=== PATIENT | male | born 1935 | race Caucasian/White ===

== ENCOUNTER → 2018-01-06 | Outpatient (CLI) | payer OTHER | END | disposition home or self-care (01) | LOC: OIH 14:37 | PROVIDERS: ATTEND Internal Medicine | DX: M43.17 Spondylolisthesis, lumbosacral region (principal); M48.07 Spinal stenosis, lumbosacral region; M47.26 Other spondylosis with radiculopathy, lumbar region; D59.1 Other autoimmune hemolytic anemias | CPT/HCPCS: 72100; 72170 ==

== ENCOUNTER → 2019-12-05 | Outpatient (CLI) | payer OTHER | END | disposition home or self-care (01) | LOC: OIH 12:43 | PROVIDERS: ATTEND Internal Medicine | DX: I10 Essential (primary) hypertension (principal); M41.84 Other forms of scoliosis, thoracic region; M47.814 Spondylosis without myelopathy or radiculopathy, thoracic region; I70.0 Atherosclerosis of aorta | CPT/HCPCS: 71046 ==

== ENCOUNTER → 2020-08-05 | Outpatient (CLI) | payer OTHER | END | disposition home or self-care (01) | LOC: RAH 15:41 | PROVIDERS: ATTEND Internal Medicine | DX: I70.0 Atherosclerosis of aorta (principal); R07.89 Other chest pain; R05 Cough | CPT/HCPCS: 71046 ==

== ENCOUNTER → 2021-01-16 | Outpatient (CLI) | payer OTHER | END | disposition home or self-care (01) | LOC: OIH 14:41 | PROVIDERS: ATTEND Internal Medicine | DX: Q25.46 Tortuous aortic arch (principal); R06.02 Shortness of breath | CPT/HCPCS: 71046 ==

== ENCOUNTER → 2021-12-22 | Outpatient (CLI) | payer OTHER | END | disposition home or self-care (01) | LOC: RAH 08:59 | PROVIDERS: ATTEND Family Medicine | DX: M75.102 Unspecified rotator cuff tear or rupture of left shoulder, not specified as traumatic (principal); M25.412 Effusion, left shoulder; M62.512 Muscle wasting and atrophy, not elsewhere classified, left shoulder; Z98.890 Other specified postprocedural states | CPT/HCPCS: 73221 ==

== ENCOUNTER → 2022-11-24 | Outpatient (CLI) | payer OTHER ==
[2022-11-24 10:17] LABS: BASOPHILS % (AUTO) 1.6 % (0.0-5.0); EOSINOPHILS % (AUTO) 4.6 % (0.0-8.0); HEMATOCRIT 27.7 % (42-54); LYMPHOCYTES % (AUTO) 56.5 % (21.0-51.0); MEAN CORPUSCULAR HEMOGLOBIN 32.6 pg (27.0-33.0); MEAN CORPUSCULAR HGB CONC 33.2 g/dL (32.0-36.0); MEAN CORPUSCULAR VOLUME 98.2 fL (79-99); MONOCYTES % (AUTO) 11.8 % (3.0-13.0); NEUTROPHILS % (AUTO) 25.1 % (40.0-77.0); PLATELET COUNT (AUTO) 128 K/uL (130-400); RED BLOOD CELL COUNT(AUTO) 2.82 MIL/uL (4.50-6.20); RED CELL DISTRIBUTION WIDTH 17.2 % (11.0-15.5)
== END | disposition home or self-care (01) ==
LOC: LAB 09:23
PROVIDERS: ATTEND Internal Medicine
DX: D59.9 Acquired hemolytic anemia, unspecified (principal)
CPT/HCPCS: 36415; 85025

== ENCOUNTER → 2023-02-09 | Outpatient (CLI) | payer OTHER ==
[2023-02-09 12:22] LABS: BASOPHILS % (AUTO) 1.2 % (0.0-5.0); EOSINOPHILS % (AUTO) 0.7 % (0.0-8.0); HEMATOCRIT 27.7 % (42-54); LYMPHOCYTES % (AUTO) 66.8 % (21.0-51.0); MEAN CORPUSCULAR HEMOGLOBIN 32.5 pg (27.0-33.0); MEAN CORPUSCULAR HGB CONC 33.9 g/dL (32.0-36.0); MEAN CORPUSCULAR VOLUME 95.8 fL (79-99); MONOCYTES % (AUTO) 13.5 % (3.0-13.0); NEUTROPHILS % (AUTO) 17.1 % (40.0-77.0); PLATELET COUNT (AUTO) 150 K/uL (130-400); RED BLOOD CELL COUNT(AUTO) 2.89 MIL/uL (4.50-6.20); RED CELL DISTRIBUTION WIDTH 18.5 % (11.0-15.5); WHITE BLOOD COUNT (AUTO) 4.2 K/uL (4.8-10.8)
[2023-02-09 12:39] LABS: ALBUMIN 3.1 g/dL (3.5-5.0); CREATININE 0.7 mg/dL (0.5-1.5); POTASSIUM 3.9 mmol/L (3.5-5.1); TOTAL PROTEIN, SERUM 8.1 g/dL (6.0-8.3)
== END | disposition home or self-care (01) ==
LOC: LAB 11:35
PROVIDERS: ATTEND Internal Medicine
DX: K44.9 Diaphragmatic hernia without obstruction or gangrene (principal); D59.12 Cold autoimmune hemolytic anemia; D59.9 Acquired hemolytic anemia, unspecified; I10 Essential (primary) hypertension; M21.961 Unspecified acquired deformity of right lower leg; Z01.818 Encounter for other preprocedural examination
CPT/HCPCS: 36415; 71046; 80053; 85025

== ENCOUNTER → 2023-03-23 | Outpatient (CLI) | payer OTHER ==
[2023-03-23 15:38] LABS: BASOPHILS % (AUTO) 1.1 % (0.0-5.0); EOSINOPHILS % (AUTO) 1.9 % (0.0-8.0); HEMATOCRIT 26.9 % (42-54); LYMPHOCYTES % (AUTO) 42.6 % (21.0-51.0); MEAN CORPUSCULAR HEMOGLOBIN 32.4 pg (27.0-33.0); MEAN CORPUSCULAR HGB CONC 34.2 g/dL (32.0-36.0); MEAN CORPUSCULAR VOLUME 94.7 fL (79-99); MONOCYTES % (AUTO) 5.8 % (3.0-13.0); NEUTROPHILS % (AUTO) 48.1 % (40.0-77.0); PLATELET COUNT (AUTO) 178 K/uL (130-400); RED BLOOD CELL COUNT(AUTO) 2.84 MIL/uL (4.50-6.20); WHITE BLOOD COUNT (AUTO) 3.8 K/uL (4.8-10.8)
== END | disposition home or self-care (01) ==
LOC: LAB 15:02
PROVIDERS: ATTEND Internal Medicine
DX: I10 Essential (primary) hypertension (principal); D59.10 Autoimmune hemolytic anemia, unspecified; J45.998 Other asthma; K21.9 Gastro-esophageal reflux disease without esophagitis; K44.9 Diaphragmatic hernia without obstruction or gangrene; M41.80 Other forms of scoliosis, site unspecified
CPT/HCPCS: 36415; 85025

== ENCOUNTER → 2023-04-21 | Outpatient (CLI) | payer OTHER ==
[2023-04-21 08:44] LABS: BASOPHILS % (AUTO) 0.8 % (0.0-5.0); EOSINOPHILS % (AUTO) 2.1 % (0.0-8.0); HEMATOCRIT 29.2 % (42-54); LYMPHOCYTES % (AUTO) 61.2 % (21.0-51.0); MEAN CORPUSCULAR HEMOGLOBIN 32.6 pg (27.0-33.0); MEAN CORPUSCULAR HGB CONC 32.5 g/dL (32.0-36.0); MEAN CORPUSCULAR VOLUME 100.3 fL (79-99); MONOCYTES % (AUTO) 12.2 % (3.0-13.0); NEUTROPHILS % (AUTO) 23.2 % (40.0-77.0); PLATELET COUNT (AUTO) 127 K/uL (130-400); RED BLOOD CELL COUNT(AUTO) 2.91 MIL/uL (4.50-6.20); RED CELL DISTRIBUTION WIDTH 18.1 % (11.0-15.5); WHITE BLOOD COUNT (AUTO) 3.8 K/uL (4.8-10.8)
[2023-04-21 09:22] LABS: ALBUMIN 2.9 g/dL (3.5-5.0); CREATININE 0.7 mg/dL (0.5-1.5); POTASSIUM 3.9 mmol/L (3.5-5.1); TOTAL PROTEIN, SERUM 7.8 g/dL (6.0-8.3)
[2023-04-21 11:14] LABS: B-TYPE NATRIURETIC PEPTIDE 407 pg/mL (0-100)
== END | disposition home or self-care (01) ==
LOC: LAB 08:19
PROVIDERS: ATTEND Internal Medicine
DX: K44.9 Diaphragmatic hernia without obstruction or gangrene (principal); R53.83 Other fatigue; M41.80 Other forms of scoliosis, site unspecified; F41.8 Other specified anxiety disorders; I10 Essential (primary) hypertension; K21.9 Gastro-esophageal reflux disease without esophagitis; D59.10 Autoimmune hemolytic anemia, unspecified
CPT/HCPCS: 36415; 80053; 82607; 82728; 83880; 85025; 85045

== ENCOUNTER → 2024-05-02 | Outpatient (CLI) | payer OTHER ==
[2024-05-02 12:09] LABS: APPEARANCE,URINE CLEAR (CLEAR); BILIRUBIN,URINE NEGATIVE (NEGATIVE); COLOR,URINE LIGHT-YELLOW (YELLOW); GLUCOSE, URINE (UA) NEGATIVE (NEGATIVE); KETONES,URINE NEGATIVE (NEGATIVE); LEUKOCYTE ESTERASE ,URINE NEGATIVE Leu/uL (NEGATIVE); NITRATE,URINE NEGATIVE (NEGATIVE); OCCULT BLOOD,URINE NEGATIVE (NEGATIVE); PH,URINE 6.5 (5.0-8.0); PROTEIN,URINE NEGATIVE (NEGATIVE); UROBILINOGEN,URINE 0.2 mg/dL (0.2-1.0)
[2024-05-02 12:10] LABS: ADD UA MICROSCOPIC NO
[2024-05-02 12:30] LABS: BASOPHILS # (AUTO) 0.07 K/uL (0.00-0.20); BASOPHILS % (AUTO) 1.8 % (0.0-5.0); EOSINOPHILS # (AUTO) 0.33 K/uL (0.00-0.70); EOSINOPHILS % (AUTO) 8.3 % (0.0-8.0); HEMATOCRIT 32.1 % (42-54); IMMATURE GRANULOCYTE ABSOLUTE 0.01 K/uL (0-1); LYMPHOCYTES % (AUTO) 50.5 % (21.0-51.0); MEAN CORPUSCULAR HEMOGLOBIN 33.5 pg (27.0-33.0); MEAN CORPUSCULAR VOLUME 98.8 fL (79-99); MONOCYTES # (AUTO) 0.6 K/uL (0.1-1.0); MONOCYTES % (AUTO) 14.3 % (3.0-13.0); NEUTROPHILS % (AUTO) 24.8 % (40.0-77.0); PLATELET COUNT (AUTO) 133 K/uL (130-400); RED BLOOD CELL COUNT(AUTO) 3.25 MIL/uL (4.50-6.20)
[2024-05-02 12:51] LABS: HEMOGLOBIN A1C 4.6 % (4.0-6.0)
[2024-05-02 13:15] LABS: ALBUMIN 3.3 g/dL (3.5-5.0); BILIRUBIN,DIRECT 0.3 mg/dL (0.0-0.3); BILIRUBIN,TOTAL 1.4 mg/dL (0.2-1.0); CREATININE 0.7 mg/dL (0.5-1.3); POTASSIUM 4.2 mmol/L (3.5-5.1); THYROID STIMULATING HORMONE 4.85 uIU/mL (0.36-3.74); TOTAL PROTEIN, SERUM 8.1 g/dL (6.0-8.3)
== END | disposition home or self-care (01) ==
LOC: LAB 11:02
PROVIDERS: ATTEND Internal Medicine
DX: Z13.1 Encounter for screening for diabetes mellitus (principal); Z12.5 Encounter for screening for malignant neoplasm of prostate; E03.9 Hypothyroidism, unspecified; I10 Essential (primary) hypertension; E78.5 Hyperlipidemia, unspecified; Z79.899 Other long term (current) drug therapy
CPT/HCPCS: 36415; 80053; 80061; 80076; 81003; 82043; 82570; 83036; 84153; 84443; 85025

== ENCOUNTER → 2024-05-31 | Outpatient (CLI) | payer MEDICARE, OTHER | END | disposition home or self-care (01) | LOC: RAH 14:04 | PROVIDERS: ATTEND Internal Medicine | DX: K44.9 Diaphragmatic hernia without obstruction or gangrene (principal); M41.85 Other forms of scoliosis, thoracolumbar region; K40.90 Unilateral inguinal hernia, without obstruction or gangrene, not specified as recurrent; Z90.49 Acquired absence of other specified parts of digestive tract | CPT/HCPCS: 74176 ==

== ENCOUNTER → 2024-11-20 | Outpatient (CLI) | payer MEDICARE ==
[2024-11-20 16:12] LABS: BASOPHILS # (AUTO) 0.03 K/uL (0.00-0.20); BASOPHILS % (AUTO) 1.1 % (0.0-5.0); EOSINOPHILS # (AUTO) 0.02 K/uL (0.00-0.70); EOSINOPHILS % (AUTO) 0.7 % (0.0-8.0); HEMATOCRIT 26.2 % (42-54); IMMATURE GRANULOCYTE ABSOLUTE 0.14 K/uL (0-1); LYMPHOCYTES # (AUTO) 0.7 K/uL (1.0-4.8); LYMPHOCYTES % (AUTO) 26.4 % (21.0-51.0); MEAN CORPUSCULAR HEMOGLOBIN 33.2 pg (27.0-33.0); MEAN CORPUSCULAR HGB CONC 34.7 g/dL (32.0-36.0); MEAN CORPUSCULAR VOLUME 95.6 fL (79-99); MONOCYTES # (AUTO) 0.3 K/uL (0.1-1.0); MONOCYTES % (AUTO) 10.1 % (3.0-13.0); NEUTROPHILS # (AUTO) 1.6 K/uL (1.8-7.7); NEUTROPHILS % (AUTO) 56.6 % (40.0-77.0); PLATELET COUNT (AUTO) 151 K/uL (130-400); RED BLOOD CELL COUNT(AUTO) 2.74 MIL/uL (4.50-6.20); RED CELL DISTRIBUTION WIDTH 17.4 % (11.0-15.5); WHITE BLOOD COUNT (AUTO) 2.8 K/uL (4.8-10.8)
[2024-11-20 17:00] LABS: ALBUMIN 3.2 g/dL (3.5-5.0); BILIRUBIN,TOTAL 2.1 mg/dL (0.2-1.0); CREATININE 0.7 mg/dL (0.5-1.3); POTASSIUM 5.1 mmol/L (3.5-5.1); THYROID STIMULATING HORMONE 3.14 uIU/mL (0.36-3.74); TOTAL PROTEIN, SERUM 7.5 g/dL (6.0-8.3); URIC ACID 5.8 mg/dL (2.6-7.2)
[2024-11-20 17:18] LABS: BAND NEUTROPHILS % (MANUAL) 5 % (0-2); LYMPHOCYTES % (MANUAL) 32 % (22-44); MAN.DIFF COMMENT-IMPRESSION MANUAL DIFFERENTIAL; MONOCYTES % (MANUAL) 8 % (2-9); PLATELET MORPHOLOGY COMMENT ADEQUATE; SEGMENTED NEUTROPHILS % 55 % (40-70); TOTAL CELLS COUNTED 100; WBC MORPHOLOGY CONSISTENT W/DIFF
== END | disposition home or self-care (01) ==
LOC: LAB 15:08
PROVIDERS: ATTEND Internal Medicine
DX: Z13.1 Encounter for screening for diabetes mellitus (principal); I10 Essential (primary) hypertension; F41.1 Generalized anxiety disorder; K59.04 Chronic idiopathic constipation; I34.0 Nonrheumatic mitral (valve) insufficiency; E78.5 Hyperlipidemia, unspecified; E03.9 Hypothyroidism, unspecified; Z85.46 Personal history of malignant neoplasm of prostate; Z86.2 Personal history of diseases of the blood and blood-forming organs and certain disorders involving the immune mechanism
CPT/HCPCS: 36415; 80053; 80061; 83036; 84153; 84154; 84443; 84550; 85025

== ENCOUNTER → 2025-01-09 | Outpatient (CLI) | payer MEDICARE ==
--- NOTE | 2025-01-09 11:27 | HMCIMG ---
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 COMPARISON: None TECHNIQUE: Single contrast upper GI series study was performed. FINDINGS: There is no obstruction to the antegrade passage of barium from mouth to jejunum. The study is limited due to patient's underlying condition. There are findings suspicious for Zenker's diverticulum in the cervical esophagus but cannot completely well visualized. Esophageal contractions are noted. Stomach is poorly distended. There is large hiatal hernia. There is gastroesophageal reflux seen to the level of mid thoracic esophagus. Duodenal bulb and duodenal sweep are grossly unremarkable. IMPRESSION: Limited study due to patient's underlying condition. Questionable Zenker's diverticulum. Large hiatal hernia. Gastroesophageal reflux to the level of mid thoracic esophagus. No obstruction.
== END | disposition home or self-care (01) ==
LOC: RAH 09:22
PROVIDERS: ATTEND Internal Medicine Gastroenterology
DX: K21.9 Gastro-esophageal reflux disease without esophagitis (principal); K44.9 Diaphragmatic hernia without obstruction or gangrene; K31.89 Other diseases of stomach and duodenum; K22.5 Diverticulum of esophagus, acquired; R12 Heartburn
CPT/HCPCS: 74240

== ENCOUNTER → 2025-02-08 | Outpatient (CLI) | payer MEDICARE ==
[2025-02-08 09:28] LABS: BASOPHILS # (AUTO) 0.03 K/uL (0.00-0.20); BASOPHILS % (AUTO) 1.1 % (0.0-5.0); HEMATOCRIT 23.3 % (42-54); IMMATURE GRANULOCYTE ABSOLUTE 0.02 K/uL (0-1); LYMPHOCYTES # (AUTO) 1.7 K/uL (1.0-4.8); LYMPHOCYTES % (AUTO) 59.3 % (21.0-51.0); MEAN CORPUSCULAR HGB CONC 35.2 g/dL (32.0-36.0); MEAN CORPUSCULAR VOLUME 102.2 fL (79-99); MONOCYTES # (AUTO) 0.5 K/uL (0.1-1.0); MONOCYTES % (AUTO) 18.6 % (3.0-13.0); NEUTROPHILS # (AUTO) 0.6 K/uL (1.8-7.7); NEUTROPHILS % (AUTO) 20.3 % (40.0-77.0); PLATELET COUNT (AUTO) 147 K/uL (130-400); RED BLOOD CELL COUNT(AUTO) 2.28 MIL/uL (4.50-6.20); RED CELL DISTRIBUTION WIDTH 18.4 % (11.0-15.5); WHITE BLOOD COUNT (AUTO) 2.9 K/uL (4.8-10.8)
[2025-02-08 10:07] LABS: ALANINE AMINOTRANSFERASE 16 U/L (12-78); ALBUMIN 3.1 g/dL (3.5-5.0); ASPARTATE AMINOTRANSFERASE 21 U/L (10-37); BILIRUBIN,TOTAL 1.7 mg/dL (0.2-1.0); CARBON DIOXIDE 30 mmol/L (21-32); CHLORIDE 100 mmol/L (101-111); CREATININE 0.7 mg/dL (0.5-1.3); FERRITIN 239 ng/mL (30-400); GLOMERULAR FILTR. RATE CALC 89 mL/min (>90); GLUCOSE,RANDOM 91 mg/dL (70-105); POTASSIUM 3.9 mmol/L (3.5-5.1); SODIUM SERUM 136 mmol/L (136-145); TOTAL PROTEIN, SERUM 7.2 g/dL (6.0-8.3); UREA NITROGEN, BLOOD 14 mg/dL (7-18)
[2025-02-08 10:43] LABS: BASOPHILS % (MANUAL) 1 % (0-2); LYMPHOCYTES % (MANUAL) 74 % (22-44); MONOCYTES % (MANUAL) 4 % (2-9); REACTIVE LYMPHOCYTES 3 % (0-0); SEGMENTED NEUTROPHILS % 18 % (40-70); TOTAL CELLS COUNTED 100
[2025-02-08 10:44] LABS: MAN.DIFF COMMENT-IMPRESSION MANUAL DIFFERENTIAL; PLATELET MORPHOLOGY COMMENT ADEQUATE
[2025-02-08 10:46] LABS: WBC MORPHOLOGY REACTIVE LYMPHS 1+
== END | disposition home or self-care (01) ==
LOC: LAB 09:04
PROVIDERS: ATTEND Internal Medicine
DX: I10 Essential (primary) hypertension (principal); E03.9 Hypothyroidism, unspecified; K44.9 Diaphragmatic hernia without obstruction or gangrene; R53.83 Other fatigue; R26.9 Unspecified abnormalities of gait and mobility; D59.12 Cold autoimmune hemolytic anemia; Z98.890 Other specified postprocedural states
CPT/HCPCS: 36415; 80053; 82607; 82728; 82746; 84443; 85025

== ENCOUNTER 2025-03-29 11:28 | Observation (INO) | payer MEDICARE ==
[2025-03-27 13:37] LABS: BASOPHILS # (AUTO) 0.02 K/uL (0.00-0.20); BASOPHILS % (AUTO) 0.9 % (0.0-5.0); HEMATOCRIT 21.3 % (42-54); IMMATURE GRANULOCYTE ABSOLUTE 0.02 K/uL (0-1); LYMPHOCYTES # (AUTO) 1.3 K/uL (1.0-4.8); LYMPHOCYTES % (AUTO) 57.9 % (21.0-51.0); MEAN CORPUSCULAR HGB CONC 33.3 g/dL (32.0-36.0); MEAN CORPUSCULAR VOLUME 101.9 fL (79-99); MONOCYTES # (AUTO) 0.3 K/uL (0.1-1.0); MONOCYTES % (AUTO) 14.9 % (3.0-13.0); NEUTROPHILS # (AUTO) 0.6 K/uL (1.8-7.7); NEUTROPHILS % (AUTO) 25.4 % (40.0-77.0); NUCLEATED RED BLOOD CELLS 0.9 % (0.0-0.19); PLATELET COUNT (AUTO) 121 K/uL (130-400); RED BLOOD CELL COUNT(AUTO) 2.09 MIL/uL (4.50-6.20); RED CELL DISTRIBUTION WIDTH 19.4 % (11.0-15.5); WHITE BLOOD COUNT (AUTO) 2.3 K/uL (4.8-10.8)
[2025-03-27 13:45] LABS: CREATININE 0.6 mg/dL (0.5-1.3); POTASSIUM 4.1 mmol/L (3.5-5.1)
[2025-03-27 13:51] LABS: INR 1.15 (0.85-1.15)
[2025-03-27 13:53] LABS: PARTIAL THROMBOPLASTIN TIME 26.3 SEC (26.3-35.5)
[2025-03-27 14:03] LABS: BAND NEUTROPHILS % (MANUAL) 1 % (0-2); LYMPHOCYTES % (MANUAL) 47 % (22-44); MONOCYTES % (MANUAL) 17 % (2-9); SEGMENTED NEUTROPHILS % 35 % (40-70); TOTAL CELLS COUNTED 100
[2025-03-27 14:04] LABS: MAN.DIFF COMMENT-IMPRESSION MANUAL DIFFERENTIAL; PLATELET MORPHOLOGY COMMENT ADEQUATE
[2025-03-27 14:40] VITALS: BP 157/73; PULSE 68; RESP 18; TEMP 98.1
--- NOTE | 2025-03-27 16:39 | NUR ---
report reported cbc to dr redmond. received instructions for pt to see dr augustine tomorrow for surgical clearance. pt was given appt for 03/28 at 9:[address] redmond pt on prednisone. ok for pt to continue prednisone.
--- NOTE | 2025-03-28 14:37 | NUR ---
F/U CALLED HENRIETTA WITH DR LAZCANO. SHE WAS INFORMED BY DR MCFADDEN OFFICE PT WAS CLEARED FOR SURGERY AND REPEAT CBC WAS DONE WITH RESULTS OF H&H .8 AND WBC 4.17. HENRIETTA WILL CALL BACK IF OK TO PROCEED
--- NOTE | 2025-03-28 16:22 | NUR ---
RECEIVED CALLBACK FROM HENRIETTA REGARDING LABS (CBC). PER DR. LAZCANO, OK TO PROCEED
[2025-03-29] VITALS (27 sets, daily range): BP systolic 132–160; BP diastolic 61–90; PULSE 74–97; RESP 15–20; TEMP 97–97.7; O2SAT 96–97
[~2025-03-29] VITALS: Ht 170.2 cm; Wt 74.2 kg
[~2025-03-29 11:28] MED LIST: CYAN1TAB17 PO; DIAZ5TAB4 PO; ESOM40CA66 PO; LEVO50CA5 PO; MONT-39 PO; MULT-298 PO; PRED10TA23 PO; VALS320T16 PO; vitamin b12 PO
[2025-03-29] MEDS: LACTATED RINGERS 1000ML 1,000 ML IV ONE (11:51)
[2025-03-29] MEDS: ceFAZolin SODIUM 2 GM VIAL ONE (11:51)
[2025-03-29] MEDS: acetaMINOPHEN 100 ML ONE (13:08)
[2025-03-29] MEDS: FAMOTIDINE 20MG VIAL IV ONE (13:09)
[2025-03-29] MEDS ORDERED: proPOFol 10 MG/ML 20ML VIAL IV ONE (13:26)
[2025-03-29] MEDS ORDERED: FENTanyl CITRate PF 50 MCG/1 ML 2ML VIAL ONE (13:27)
[2025-03-29] MEDS ORDERED: rocuRONium bROMide 10MG/1ML 5ML VL ONE ×2 (13:28→14:10)
[2025-03-29] MEDS ORDERED: LIDOCAINE PF 100MG/5ML (2%) SYRINGE 5ML ONE (13:28)
[2025-03-29] MEDS ORDERED: dexaMETHasone SOD PHOSPHATE 10MG/ML 1ML VIAL ONE (13:50)
[2025-03-29] MEDS ORDERED: ondanSETRON 4MG INJ ONE (13:50)
[2025-03-29] MEDS ORDERED: ketaMINE 50MG/ML SYRINGE 50 MG/ML DISP.SYRIN ONE (13:55)
[2025-03-29 13:57] LABS: ABG BASE EXCESS 4.1 mmol/L (-2.0-3.0); ABG HCO3 28.9 mmol/L (21.0-28.0); ABG OXYGEN SATURATION 99.5 % (94.0-98.0); ABG PCO2 45 mmHg (35-48); ABG PH 7.426 (7.350-7.450); CARBON MONOXIDE 2.6 % (0.5-1.5); DEVICE COMMENT A-LINE; HHb 0.5; PO2, ARTERIAL BG 405.1 mmHg (83.0-108.0); VENT MODE, BG OR VENT (ROOM AIR)
[2025-03-29] MEDS: BUPIvacaine/PF 0.25% 30ML VIAL IJ ONE (14:07)
[2025-03-29] MEDS ORDERED: GLYCOPYRROLATE 0.2 MG/ML 5 ML VIAL ONE (14:07)
[2025-03-29] MEDS ORDERED: NEOSTIGMINE METHYLSULFATE 1MG/ML IV ONE (14:08)
--- NOTE | 2025-03-29 16:29 | OP ---
Operative Note: DATE OF PROCEDURE: 03/29/25 SURGEON: AIDA LAZCANO MD PRINTED [employer]SEMBLY REPAIRER: [facility] [place] nursing and technicians ANESTHESIA: General and local ANESTHESIOLOGIST/FISHING TACKLE REPAIRER: [facility] [place] team PREOPERATIVE DIAGNOSIS: Large paraesophageal hiatal hernia POSTOPERATIVE DIAGNOSIS: As above. Incarcerated and volvulized stomach in the mediastinum. SYNOPSIS: Reduction of volvulized stomach, paraesophageal hiatal hernia repair with mesh reinforcement and posterior partial fundoplication undertaken without complication PROCEDURE: 1. Robotic assisted paraesophageal hiatal hernia repair with mesh reinforcement 2. Posterior partial fundoplication 3. Reduction of volvulized stomach 4. EGD 5. Extensive lysis of adhesions greater than 30 minutes. Robot had to be Re docked after adhesiolysis to place instruments in their appropriate locations for the remainder of the operation. ESTIMATED BLOOD LOSS: Minimal, less than 30 cc INDICATIONS: As above DESCRIPTION OF PROCEDURE: After standard precautions and preparations were undertaken a Veress needle and optical trocar were used to enter the abdominal cavity. All other instruments were placed under direct vision. The robotic system was docked in the standard fashion. We had to lyse adhesions related to the patient's previous umbilical hernia repair with mesh placement. Once those adhesions were lysed then all the instruments could be placed properly and the robot could be docked to allow for proper camera placement. We began by opening pars flaccida and identifying the right jenifer of the diaphragm. After significant time dissecting around the mediastinum we are able to enter into a nearly avascular plane and carried this dissection circumferentially to mobilize the incarcerated stomach and distal esophagus. The vast majority of the stomach up to the antrum was incarcerated and volvulized in the chest. Once we are done with our dissection of the GE junction was resting at the level of the hiatus and the stomach was able to be reduced back into the abdominal cavity in the correct orientation. The hernia repair was undertaken by reapproximating the right and left crura from the crossing fibers and the retroesophageal space upwards towards the posterior esophageal wall. The defect was extremely large greater than 10 cm in widest diameter. Due to the poor tissue quality in the size of the defect a mesh was used to reinforced the closure. The mesh was cut in a horseshoe shape and sutured in place to prevent mesh migration. A posterior partial fundoplication was undertaken by suturing the proximal fundus in a 270 degree posterior wrap orientation. At the end of the case and throughout the case the EGD scope was utilized to verify appropriate anatomic landmarks. At the end of the case the GE junction was determined to be 2-3 cm below the hiatus without any tension. The fundoplication was in place and appeared appropriate. All instrument counts were verified as correct prior to ending the case including needles and sponges. AIDA LAZCANO MD Mar 29, 2025 16:29
[2025-03-29] MEDS ORDERED: morPHINE 4 MG SYG IVP PRN (16:30)
[2025-03-29] MEDS ORDERED: monteLUKAST sodIUM 10 MG TAB PO PRN (16:30)
[2025-03-29] MEDS ORDERED: PROCHLORPERAZINE 10MG/2ML INJ IV PRN (16:30)
[2025-03-29] MEDS: HEParin 5,000 UNIT VIAL SQ SCH (16:30)
[2025-03-29] MEDS ORDERED: ondanSETRON 4MG INJ IVP PRN (16:30)
[2025-03-29] MEDS: D5LR-20 MEQ KCL 1000 ML 1,000 ML IV SCH (16:30)
[2025-03-29] MEDS ORDERED: morPHINE 2 MG SYG IVP PRN (16:30)
[2025-03-29] MEDS: FENTanyl CITRate PF 50 MCG/1 ML 2ML VIAL ONE (16:48)
--- NOTE | 2025-03-29 17:54 | NUR ---
REPORT RECEIVED FROM MICHAEL RN. PATIENT ARRIVED TO UNIT NO SIGNS OF DISTRESS NOTED, BUT PATIENT IS STILL DROWSY. ORDERED FLUIDS FROM PHARMACY SCDS PLACED ON PATIENT AND POST OP VITALS STARTED. WILL MONITOR PATIENT AND ORDER I.S. WHEN PATIENT IS MORE AWAKE AND ALERT
[2025-03-29] MEDS: diazePAM 5 MG TAB PO SCH (20:08)
[2025-03-29] MEDS: PANTOPrazole 40 MG TAB DR PO SCH (20:08)
[2025-03-29] MEDS: ketOROlac 30MG VIAL (30MG/ML) IV PRN (20:11)
[2025-03-30] VITALS: BP 133/70; PULSE 76; RESP 18; TEMP 97.2
[2025-03-30 04:00] VITALS: BP 130/70; PULSE 77; RESP 19; TEMP 97.3
[2025-03-30] MEDS: levoTHYROxine 50 MCG TABLET PO SCH (06:04)
[2025-03-30 08:00] VITALS: BP_SYST 156; PULSE 76; RESP 18; TEMP 98.2
[2025-03-30 09:38] VITALS: O2SAT 92
[2025-03-30] MEDS: VITAMIN B COMPLEX 1 CAPSULE PO SCH (09:38)
--- NOTE | 2025-03-30 12:06 | NUR ---
DCP:HOME Pt currently lives with Yara Hall, Pt states that he has a walker at home however does not uses it regularly. Pt does not have a provider or home health services. Pt is able to complete ADLs independently. PCP is Dr. Foley and uses [facility] for any RX needs. At [place] pt will go home and can assist with transportation. Addendum: 03/30/25 at 1208 by LISSY SWANSON SS Amended: Links added.
[2025-03-30 12:12] VITALS: BP 129/61; PULSE 84; RESP 18; TEMP 97.9
--- NOTE | 2025-03-30 12:12 | DS ---
Discharge Summary HOSPITAL COURSE SUMMARY: [] CUFF RUNNER(S): [] PROCEDURES: [] PROBLEM(S): [] DISCHARGE INSTRUCTIONS: [] Home Meds Reported Medications [vitamin b12] No Conflict Check, 1 TAB PO DAILY 03/27/25 Multivitamin (One-A-Day Essential) 1 Each Tablet, 1 EACH PO DAILY, TAB 03/27/25 Cyanocobalamin/FA/Pyridoxine (Folbic Tablet) 2 Mg-2.5 Mg-25 Mg Tablet, 1 EACH PO DAILY, TAB 03/27/25 Montelukast Sodium (Montelukast Sodium) 10 Mg Tablet, 10 MG PO DAILY PRN for congestion, TAB 03/27/25 Esomeprazole Magnesium (Esomeprazole Magnesium) 40 Mg Capsule.dr, 40 MG PO BID, CAP 03/27/25 Levothyroxine Sodium (Levothyroxine) 50 Mcg Capsule, 50 MCG PO AM, CAP 03/27/25 Valsartan (Valsartan) 320 Mg Tablet, 320 MG PO NOON, TAB 03/27/25 Diazepam (Diazepam) 5 Mg Tablet, 5 MG PO HS, TAB 03/27/25 Prednisone (Prednisone) 10 Mg Tab.ds.pk, 10 MG PO NOON 03/27/25 SANDI MENDEZ [facility] Mar 30, 2025 12:12
[2025-03-30] MEDS: LoSARTan 100 MG TABLET PO SCH (12:24)
[2025-03-30] MEDS: predniSONE 10 MG TABLET PO SCH (12:24)
[2025-03-30] MEDS ORDERED: PHENOL 177 ML BOTTLE PO PRN (12:30)
--- NOTE | 2025-03-30 14:41 | NUR ---
PATIENT DISCHARGED PERIPHERAL IV DISCONTINUED CATHETER INTACT DISCHARGE INSTRUCTIONS GIVEN PRESCRIPTIONS SENT TO PHARMACY PATIENT AWARE TO F/U WITH DR. LAZCANO ALL QUESTIONS ANSWERED.
--- NOTE | 2025-03-30 22:13 | PN ---
PROGRESS NOTE PROGRESS NOTE DATE OF PROGRESS NOTE: 03/30/25 SUBJECTIVE: No new complaints VITAL SIGNS Vital Signs Date Time Temp Pulse Resp B/P (MAP) Pulse Ox O2 Delivery O2 Flow Rate FiO2 03/30/25 12:12 97.9 84 18 129/61 95 Room Air 03/30/25 09:38 3 32 PHYSICAL EXAM: HEENT atraumatic normocephalic head Neck is supple Lungs are clear to auscultation percussion Heart was S1-S2 heard no murmur Extremities no pedal edema Skin exam unremarkable PLAN: Cryoglobulinemia clinically stable Anxiety control Hypertension stable Status post hiatal hernia repair discharge once cleared by RAE SAGE MD Mar 30, 2025 22:13
== END 2025-03-30 15:05 | disposition home or self-care (01) ==
LOC: DAH 11:28 → DAHIP 11:29 → INTOOBSV 11:29 → DAH 11:29 → 4CH 17:50
PROVIDERS: ADMIT Surgery; ATTEND Surgery
DX: K44.9 Diaphragmatic hernia without obstruction or gangrene (principal); K22.5 Diverticulum of esophagus, acquired; I10 Essential (primary) hypertension; E03.9 Hypothyroidism, unspecified; F41.9 Anxiety disorder, unspecified; Z79.899 Other long term (current) drug therapy; Z86.2 Personal history of diseases of the blood and blood-forming organs and certain disorders involving the immune mechanism
CPT/HCPCS: 80048; 85025; 85610; 85730; 86850; 86900; 86901; 36415; 43282; 96374; 82435; 82947; 84132; 84295; 82803; 85018; 86923; 82948; 83605; 96376; 96372; 97161; 97116; A4663; J7040; A4215 ×2; J7120; J3490 ×5; J3010 ×2; J1100; J0665; J2003; J2704; J2405; J1885 ×2; J2710; J3480 ×3; J0690; C1781; A4930; A4223 ×2; A4213; A4222; A4221; A4216; A4600; G0378 ×3; J1644; J7512; 43235

== ENCOUNTER 2025-05-19 11:45 | Emergency (ER) | payer MEDICARE ==
[~2025-05-19] VITALS: Ht 170.2 cm; Wt 72.6 kg
--- NOTE | 2025-05-19 12:24 | NUR ---
LAB RPORTED HEMOGLOBIN 5.6 AND HEMATOCRIT 12.9. STATED TO HOLD OFF ON THE CRITICAL LABS DUE TO "GLUTENATION." WILL RE PROCESS H&H
[2025-05-19 12:34] LABS: IMMATURE GRANULOCYTE ABSOLUTE 0.02 K/uL (0-1); NUCLEATED RED BLOOD CELLS 0.8 % (0.0-0.19); PLATELET COUNT (AUTO) 149 K/uL (130-400); RED BLOOD CELL COUNT(AUTO) 1.56 MIL/uL (4.50-6.20); RED CELL DISTRIBUTION WIDTH 21.6 % (11.0-15.5); WHITE BLOOD COUNT (AUTO) 2.5 K/uL (4.8-10.8)
[2025-05-19 12:37] LABS: CREATINE KINASE, TOTAL 26.0 U/L (21-232); CREATININE 0.6 mg/dL (0.5-1.3); GLOMERULAR FILTR. RATE CALC 93.0 mL/min (>90); GLUCOSE,RANDOM 94.0 mg/dL (70-105); SODIUM SERUM 134.0 mmol/L (136-145); UREA NITROGEN, BLOOD 12.0 mg/dL (7-18)
--- NOTE | 2025-05-19 12:40 | NUR ---
PATIENT STATES SEES DR MAURER FOR BLOOD DISORDER. STATES CBC BLOOD TUBE MUST BE PLACED IN LAB PROCESSING MACHINE IMMEDIATELY OR IT WILL CLOT AND SHOW LOW RESULTS.
--- NOTE | 2025-05-19 13:13 | HMCIMG ---
EXAM: US for Deep Venous Thrombosis, left Lower Extremity. CLINICAL HISTORY: Leg Pain and Swelling TECHNIQUE: Real-time ultrasound scan of the veins of the left lower extremity with color Doppler flow, spectral waveform analysis and compression. COMPARISON: None provided. FINDINGS: DEEP VEINS: The common femoral, superficial femoral, and popliteal veins are echolucent and compressible. There is normal color Doppler flow throughout. The visualized calf veins appear patent. SOFT TISSUES: No popliteal fossa cyst or other abnormalities. IMPRESSION: 1. No deep venous thrombosis in the left lower extremity. /[place]
--- NOTE | 2025-05-19 13:14 | NUR ---
DECLINES BLOOD PRODUCTS. REFUSAL FOR BLOOD PRODUCTS SIGNED BY SPOUSE AT BEDSIDE. DECLINES ANY FURTHER VENIPUNCTURES. REFUSAL OF TREATMENT SIGNED BY PATIENT'S SPOUSE. DR SU MADE AWARE. PT IS ALERT AND ORIENTED X4.
[2025-05-19] MEDS ORDERED: CEPH500B PO (13:16)
--- NOTE | 2025-05-19 13:16 | ERN ---
General Chief Complaint: LOWER EXTREMITY EDEMA Stated Complaint: LOWER EXTREMITY Time Seen by MD: 11:49 Source: patient History of Present Illness Initial Comments Patient is a an 89-year-old gentleman coming in complaining of left lower extremity swelling and erythema. Patient was concerned that he might have a blood clot. No fever or chills. He states that he has been ongoing for a couple of days. Allergies: Coded Allergies: No Known Drug Allergies (Unverified Allergy, Unknown, 03/27/25) Home Meds Reported Medications [vitamin b12] No Conflict Check, 1 TAB PO DAILY 03/27/25 Multivitamin (One-A-Day Essential) 1 Each Tablet, 1 EACH PO DAILY, TAB 03/27/25 Cyanocobalamin/FA/Pyridoxine (Folbic Tablet) 2 Mg-2.5 Mg-25 Mg Tablet, 1 EACH PO DAILY, TAB 03/27/25 Montelukast Sodium (Montelukast Sodium) 10 Mg Tablet, 10 MG PO DAILY PRN for congestion, TAB 03/27/25 Esomeprazole Magnesium (Esomeprazole Magnesium) 40 Mg Capsule.dr, 40 MG PO BID, CAP 03/27/25 Levothyroxine Sodium (Levothyroxine) 50 Mcg Capsule, 50 MCG PO AM, CAP 03/27/25 Valsartan (Valsartan) 320 Mg Tablet, 320 MG PO NOON, TAB 03/27/25 Diazepam (Diazepam) 5 Mg Tablet, 5 MG PO HS, TAB 03/27/25 Prednisone (Prednisone) 10 Mg Tab.ds.pk, 10 MG PO NOON 03/27/25 Past Medical History Past Medical History: CHF, High Cholesterol, Heart Disease, Hypertension, Hypothyroid Past Surgical History: Other Surgical History Other: hiatal hernia ROS Dictation CONSTITUTIONAL: No chills, no fever, no weakness, no diaphoresis, no malaise. HEAD/FACE: No signs of trauma. EENT: No eye pain, no blurred vision, no tearing, no double vision, no ear pain, no ear discharge, no nose pain, no nasal congestion, no throat pain, no throat swelling, no mouth pain. RESPIRATORY: No cough, no orthopnea, no SOB, no stridor, no wheezing. CARDIOVASCULAR: No chest pain, no edema, no palpitations, no syncope. GASTROINTESTINAL/ABDOMINAL: No abdominal pain, no constipation, no diarrhea, no nausea, no vomiting. GENITOURINARY: No abnormal discharge, no dysuria, no frequent urination, no hematuria. No complaints of pain in the genitals. MUSCULOSKELETAL: No back pain, no gout, no joint pain, no joint swelling, no muscle pain, no muscle stiffness, no neck pain. INTEGUMENTARY: change in color, no change in hair/nails, no dryness, no lesion, no lumps, no rash. NEUROLOGICAL/PSYCH: No anxiety, not depressed, no emotional problem, no headache, no numbness, no pre-existing deficit, no history of seizures, no tremors, no weakness. HEMATOLOGIC/LYMPHATIC: Not anemic, no history of blood clots, no apparent bleeding, no bruising, glands not swollen. All Systems Negative, Except as Noted. Physical Exam Physical Exam Dictation VITAL SIGNS: Reviewed. GENERAL APPEARANCE: Alert, oriented x3, no acute distress, obese. HEAD AND FACE: Non-traumatic. EYES: PERRL, pink conjunctivas, eyelid no trauma, anterior chamber clear. EARS: Pinnas intact and no signs of trauma or erythema. Ear canals clear and no discharge. TMs no erythema. NOSE: No discharge, no bleeding. OROPHARYNX: Mouth normal, teeth no caries, tongue pink. Pharynx clear, no erythema. Tonsils no exudates, no abscesses noted. Mucous membrane moist. NECK: Supple, non-tender, no thyromegaly, no masses, no JVD, no bruits. BREAST: Deferred. CHEST: No tenderness, no crepitus, no paradoxical movement, no retractions. LUNGS: Clear, well-ventilated, symmetric, no rales, no wheezing, no rhonchi, no stridor, good breath sounds bilaterally. HEART: Regular rate, regular rhythm, no murmur, no gallops. VASCULAR: No peripheral edema. ABDOMEN: Soft, positive bowel sounds, nondistended, no guarding, nontender, no rebound, no masses no hepatomegaly, no splenomegaly, no Alicea's sign, no hernias. RECTAL: Deferred. GENITAL: Deferred. NEUROLOGICAL: Normal speech, gross motor function intact, gross sensory function intact. MUSCULOSKELETAL: Neck nontender, full range of motion, back nontender, full range of motion. EXTREMITIES: Nontender, full range of motion. Left lower extremity pedal edema with the erythema tenderness to palpation SKIN: Color pink, dry, no turgor, no rash, no lacerations, no abrasions, no contusions. LYMPHATICS: Deferred. Results Laboratory and Microbiology Lab and Micro Result Laboratory Tests Test 05/19/25 12:04 05/19/25 12:06 Sodium Level 134 mmol/L (136-145) L Potassium Level 4.0 mmol/L (3.5-5.1) Chloride Level 101 mmol/L (101-111) Carbon Dioxide Level 31 mmol/L (21-32) Blood Urea Nitrogen 12 mg/dL (7-18) Creatinine 0.6 mg/dL (0.5-1.3) Glomerular Filtration Rate Calc 93 mL/min (>90) Random Glucose 94 mg/dL (70-105) Total Calcium 8.2 mg/dL (8.5-10.1) L Total Creatine Kinase 26 U/L (21-232) White Blood Count 2.5 K/uL (4.8-10.8) L Red Blood Count 1.56 MIL/uL (4.50-6.20) L Hemoglobin 5.5 g/dL (14.0-18.0) *L Hematocrit 16.7 % (42-54) *L Mean Corpuscular Volume 107.1 fL (79-99) H Mean Corpuscular Hemoglobin 35.3 pg (27.0-33.0) H Mean Corpuscular Hemoglobin Concent 32.9 g/dL (32.0-36.0) Red Cell Distribution Width 21.6 % (11.0-15.5) H Platelet Count 149 K/uL (130-400) Mean Platelet Volume 10.0 fL (7.5-10.5) Immature Granulocyte % (Auto) 0.8 % (0-1) Neutrophils (%) (Auto) 50.0 % (40.0-77.0) Lymphocytes (%) (Auto) 35.6 % (21.0-51.0) Monocytes (%) (Auto) 12.8 % (3.0-13.0) Eosinophils (%) (Auto) 0.4 % (0.0-8.0) Basophils (%) (Auto) 0.4 % (0.0-5.0) Neutrophils # (Auto) 1.3 K/uL (1.8-7.7) L Lymphocytes # (Auto) 0.9 K/uL (1.0-4.8) L Monocytes # (Auto) 0.3 K/uL (0.1-1.0) Eosinophils # (Auto) 0.01 K/uL (0.00-0.70) Basophils # (Auto) 0.01 K/uL (0.00-0.20) Absolute Immature Granulocyte (auto 0.02 K/uL (0-1) Nucleated Red Blood Cells 0.8 % (0.0-0.19) H Labs Reviewed?: Yes EKG/XRAY/US/CT/MRI Ultrasound Comment Ultrasound venous Doppler lower extremity-NAD MDM MDM: Differential diagnosis: DVT, cellulitis, Rationale: Tests considered and ordered secondary to shared decision making incl ude: Previous outside records reviewed: Old ER visits. Risk of complication and/or morbidity or mortality of patient management: None Medications-Per medication reconciliation Need for hospitalization: Patient does not meet criteria for hospitalization. Need for emergency major/minor surgery: No Patient is a an 82 coming in complaining of lower extremity swelling and e rythema. Ultrasound did not disclose acute findings. 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 He states that he is not anemic and refuses another blood draw. Due to the limitations of labs able to be drawn patient will be discharged with a diagnosis of lower extremity cellulitis due to the physical presentation of lower extremity. Although a complete his assessment could not be performed due to patient's refusal to have blood drawn. Ultrasound did not disclose DVT. I did advised him appropriate follow up with PCP for ongoing evaluation and continues management. Compression stockings were provided. ED Course Orders Procedure Category Date Status Time Cbc With Differential LAB 05/19/25 In Process 11:54 Creatine Kinase, Total LAB 05/19/25 Complete 11:54 Urinalysis Profile LAB 05/19/25 Logged 11:54 Basic Metabolic Panel LAB 05/19/25 Complete 11:54 Us Venous Doppler US 05/19/25 Taken Unilateral 11:54 Type And Screen BBK 05/19/25 In Process 12:23 Manual Differential LAB 05/19/25 In Process 12:06 12 Lead Ekg Tracing- EKG 05/19/25 Logged Technical 12:42 Vital Signs Date Time Temp Pulse Resp B/P (MAP) Pulse Ox O2 Delivery O2 Flow Rate FiO2 05/19/25 11:58 97.9 65 16 116/51 100 Room Air* 0 21 05/19/25 11:50 97.9 65 16 116/51 100 Room Air 0 DX & DISP Disposition: Discharge Departure Impression: Primary Impression: Pedal edema Additional Impression: Lower extremity cellulitis Condition: Stable Scripts Cephalexin Monohydrate (Keflex) 500 Mg Cap 1 CAP PO TID for 10 Days, #30 CAP 0 Refills Prov: ALMA SU MD 05/19/25 Additional Instructions: FOLLOW-UP WITH PRIMARY CARE PROVIDER IN 1 TO 2 DAYS. TAKE MEDICATIONS DIRECTED HERE IN THE EMERGENCY ROOM. OKAY TO CONTINUE HOME MEDICATIONS UNLESS OTHERWISE DISCUSSED DURING YOUR VISIT IN THE EMERGENCY ROOM TODAY. RETURN TO YOUR NEAREST EMERGENCY ROOM IF SYMPTOMS WORSEN OR IF THERE IS NO IMPROVEMENT. CALL 911 IF YOU NEED IMMEDIATE ASSISTANCE. TAKE TYLENOL [id number] NEEDED AND IF NO CONTRAINDICATIONS ARE PRESENT. INCREASE ORAL HYDRATION. A WOUND CULTURE OR URINE CULTURE WAS ORDERED HERE IN THE EMERGENCY ROOM DEPARTMENT PLEASE FOLLOW-UP WITH PRIMARY CARE PROVIDER AND ADVISE THEM TO GET REPORTS FROM OUR FACILITY. IF YOU HAD ANY ANDREA WRAP/SPLINTS THAT WERE APPLIED HERE, PLEASE DO NOT REMOVE THEM UNTIL YOU SEE YOUR PRIMARY CARE OR SPECIALTY. Referrals: Referrals: RAE TAYLOR MD (PCP) Time of Disposition: 13:15 ALMA SU MD May 19, 2025 13:16
--- NOTE | 2025-05-19 13:22 | NUR ---
COMPRESSION SOCKS PLACED BILATERALLY PER ORDER
[2025-05-19 13:33] VITALS: BP 142/72; PULSE 80; RESP 16; TEMP 97.9; O2SAT 98
--- NOTE | 2025-05-19 13:33 | NUR ---
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 PT OF DR MARTINEZ
[2025-05-19 13:46] LABS: BAND NEUTROPHILS % (MANUAL) 2 % (0-2); LYMPHOCYTES % (MANUAL) 34 % (22-44); MAN.DIFF COMMENT-IMPRESSION MANUAL DIFFERENTIAL; MONOCYTES % (MANUAL) 11 % (2-9); PLATELET MORPHOLOGY COMMENT ADEQUATE; SEGMENTED NEUTROPHILS % 53 % (40-70)
--- NOTE | 2025-05-19 14:30 | EKG ---
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
== END 2025-05-19 13:38 | disposition home or self-care (01) ==
LOC: EDH 11:45
DX: R60.0 Localized edema (principal); L03.116 Cellulitis of left lower limb; E78.00 Pure hypercholesterolemia, unspecified; I11.0 Hypertensive heart disease with heart failure; I50.9 Heart failure, unspecified; E03.9 Hypothyroidism, unspecified
CPT/HCPCS: 36415; 80048; 82550; 85025; 86850; 86900; 86901; 93005; 93971; 99284